=== PATIENT | female | born 1945 | race Caucasian/White ===

== ENCOUNTER 2017-08-01 14:50 | Outpatient (CLI) | payer MEDICARE ==
--- NOTE | 2017-08-01 16:22 | ULT ---
ULTRASOUND WITH DOPPLER DUPLEX VENOUS LOWER EXTREMITY LEFT: HISTORY: 72-year-old female with left lower extremity pain. TECHNIQUE: Color flow Doppler, spectral waveform analysis of pulsed Doppler, and cheema-scale imaging with camille carlos and augmentation, were used to evaluate the left common femoral, femoral, popliteal, posterior t ibial, and superficial femoral, veins; and the proximal portions of the profunda femoral and greater saphenous, veins. FINDINGS: There is normal compressibility, demonstration of blood flow by color Doppler and pulsed Doppler, and response to augmentation, in all interrogated veins. IMPRESSION: Negative. No deep vein thrombosis in the left lower extremity. cris POS: [facility]
== END 2017-08-01 14:51 | disposition home or self-care (01) ==
LOC: ULT 14:50
PROVIDERS: ATTEND Neurological Surgery
DX: M79.605 Pain in left leg (principal)

== ENCOUNTER 2017-08-18 09:42 | Outpatient (CLI) | payer MEDICARE ==
--- NOTE | 2017-08-18 12:26 | MRI ---
CERVICAL SPINE MRI WITHOUT CONTRAST: HISTORY: Cervical radiculopathy. COMPARISON: None. TECHNIQUE: A cervical spine MRI is performed without intravenous Gadolinium administration. Multisequential, mu ltiplanar imaging is performed. FINDINGS: There is appropriate T1 marrow signal intensity of the cervical vertebrae. The cervical vertebral graciela dy height is maintained. There is no fracture. No significant STIR hyperintensity to suggest edema or ligamentous injury. The visualized brain parenchyma, cervicomedullary junction, cervical cord, and upper thoracic cord whittaker ve normal size and signal intensity. C2-C3: Central disk osteophyte complex abuts the thecal sac. No significant central canal stenosis. The foramina are patent bilaterally. C3-C4: No significant disk osteophyte complex. No significant central canal stenosis. The foramina are patent. C4-C5: There is a minimal broad-based disk osteophyte complex without significant central canal sten osis. The foramina are patent. C5-C6: A broad-based disk osteophyte complex abuts the thecal sac. The ventral subarachnoid space i s effaced. Mild central canal stenosis. Mild right foraminal narrowing due to degenerative change o f the uncovertebral joint. The left foramen is patent. C6-C7: A broad-based disk osteophyte complex abuts the thecal sac. There is mild flattening of the cervical cord without T2 hyperintensity in the cord. Mild central canal stenosis. Mild bilateral fo raminal narrowing due to degenerative change of the uncovertebral joint. C7-T1: No significant disk osteophyte complex. No significant central canal stenosis or foraminal n arrowing. IMPRESSION: Degenerative change of the cervical spine, as above. POS: [facility]
--- NOTE | 2017-08-18 12:42 | RAD ---
CERVICAL SPINE THREE VIEWS: History: Cervical radiculopathy. Comparison: None. FINDINGS: Lateral neutral, lateral extension, and lateral flexion views of the cervical spine demonstrate dennis l predental space. Cervical body vertebral height is maintained. No fracture. Mild degenerative disc disease at C4-5, C5-6, and C6-7. In the neutral position, no abnormal alignment. Mild straightening i s noted. No abnormal translation of motion on extension or flexion. No prevertebral soft tissue abnor malities. IMPRESSION: Degenerative changes of the cervical spine as above. POS: [facility]
== END 2017-08-18 09:43 | disposition home or self-care (01) ==
LOC: MRI 09:42
PROVIDERS: ATTEND Neurological Surgery
DX: M47.22 Other spondylosis with radiculopathy, cervical region (principal)
CPT/HCPCS: 72050; 72141

== ENCOUNTER 2017-09-14 08:19 | Outpatient (CLI) | payer OTHER ==
--- NOTE | 2017-09-14 09:19 | RAD ---
LUMBAR SPINE: Technique: Neutral, flexion, and extension lateral radiographs lumbar spine 218. Comparison: None. History: Left hip pain radiating down the left leg, lumbar radiculopathy. FINDINGS: Neutral lateral imaging demonstrates no anterolisthesis or retrolisthesis. There is facet hypertrophy at L3-4, L4-5, and L5-S1. There is disc space narrowing with degenerative endplate change and anteri or osteophyte formation at the L1-2 and L2-3 levels with anterior vacuum disc changes. On the neutral imaging there is minimal anterolisthesis of L5 on S1 measuring approximately 5-6 mm. W ith flexion, anterolisthesis of L5 on S1 may be slightly increased to 6 mm. With extension, the anter olisthesis of L5 on S1 decreases to 4 mm. IMPRESSION: Multilevel degenerative change seen within the lumbar spine as above. There is mild anterolisthesis o f L5 on S1, measuring up to 6 mm with flexion. POS: [facility]
--- NOTE | 2017-09-14 10:27 | MRI ---
LUMBAR SPINE MRI WITHOUT CONTRAST: Date: 09-14-17 Comparison: 11-19-12 History: Left hip pain radiating down the left leg for five months, numbness of the left foot. Technique: Multiplanar, multisequence MR imaging of the cervical spine is provided without contrast. FINDINGS: The sagittal STIR imaging demonstrates no focal area of osseous marrow edema. There is no anterolisthesis or retrolisthesis seen within the lumbar spine. There is levoscoliosis of the lumbar spine, similar when compared to the prior examination. Assuming five lumbar type vertebral bodies, the conus medullaris terminates at the L1-2 level. Incidental note is made of small stents within the gallbladder lumen. T12-L1: Mild bilateral facet hypertrophy. Intervertebral disc height and signal intensity is within n ormal limits with no significant central canal or neural foraminal stenosis. L1-2: There is bilateral facet hypertrophy, right greater than left, progressed since the prior exam. There is disc space narrowing with anterior osteophyte formation and disc bulge, also progressed sin ce the prior exam. There is no significant central canal or left neural foraminal stenosis. There is mild right neural foraminal stenosis, new. L2-3: There is disc space narrowing and degenerative endplate change with anterior osteophyte formati on and disc bulge, slightly progressed since the prior exam. Bilateral facet hypertrophy noted, right greater than left, slightly progressed as well. There is no significant central canal or neural fora armida stenosis. L3-4: Disc space narrowing, disc desiccation, and disc bulge noted, stable. Mild stable bilateral fac et hypertrophy. No significant central canal or neural foraminal stenosis. There is a tiny post cuauhtemoc inal disc protrusion on the left abutting but not displacing the ventral aspect of the exiting L3 ner ve root. L4-5: There is disc desiccation and bilateral facet hypertrophy, stable. There is no significant cent ral canal or neural foraminal stenosis. L5-S1: Bilateral facet hypertrophy is present, right greater than left, progressed since the prior ex am. There is disc desiccation and mild disc bulge, new. There is a disc protrusion in the foraminal region on the right which abuts the exiting L1 nerve root on the right with a moderate degree of right neural foraminal stenosis, new since the prior exam. No significant left neural foraminal stenosis. The imaged retroperitoneal structures are grossly unremarkable. IMPRESSION: Multilevel degenerative change noted within the lumbar spine, progressed since the prior exam. The mo st significant finding is a foraminal disc protrusion the right at L5-S1 with associated right neural foraminal stenosis. POS: [facility]
== END 2017-09-14 08:20 | disposition home or self-care (01) ==
LOC: TBSIIMAG 08:19
PROVIDERS: ATTEND Neurological Surgery
DX: M47.26 Other spondylosis with radiculopathy, lumbar region (principal); M48.061 Spinal stenosis, lumbar region without neurogenic claudication; M51.27 Other intervertebral disc displacement, lumbosacral region; M43.17 Spondylolisthesis, lumbosacral region
CPT/HCPCS: 72100; 72148

== ENCOUNTER 2021-07-22 10:44 | Outpatient (CLI) | payer MEDICARE | END 2021-07-22 10:45 | disposition home or self-care (01) | LOC: BICMAMMO 10:44 | PROVIDERS: ATTEND Internal Medicine | DX: Z12.31 Encounter for screening mammogram for malignant neoplasm of breast (principal); Z85.3 Personal history of malignant neoplasm of breast; Z91.89 Other specified personal risk factors, not elsewhere classified; Z98.890 Other specified postprocedural states | CPT/HCPCS: 77063; 77067 ==

== ENCOUNTER 2022-07-26 11:36 | Outpatient (CLI) | payer MEDICARE | END 2022-07-26 11:37 | disposition home or self-care (01) | LOC: BICMAMMO 11:36 | PROVIDERS: ATTEND Family Medicine | DX: Z12.31 Encounter for screening mammogram for malignant neoplasm of breast (principal); Z98.890 Other specified postprocedural states; Z91.89 Other specified personal risk factors, not elsewhere classified; Z85.3 Personal history of malignant neoplasm of breast | CPT/HCPCS: 77063; 77067 ==

== ENCOUNTER 2023-07-27 10:18 | Outpatient (CLI) | payer MEDICARE | END 2023-07-27 10:19 | disposition home or self-care (01) | LOC: BICMAMMO 10:18 | PROVIDERS: ATTEND Family Medicine | DX: Z12.31 Encounter for screening mammogram for malignant neoplasm of breast (principal); Z85.3 Personal history of malignant neoplasm of breast; Z91.89 Other specified personal risk factors, not elsewhere classified; Z98.890 Other specified postprocedural states | CPT/HCPCS: 77063; 77067 ==

== ENCOUNTER 2023-07-31 13:27 | Outpatient (CLI) | payer MEDICARE | END 2023-07-31 13:28 | disposition home or self-care (01) | LOC: BICMAMMO 13:27 | PROVIDERS: ATTEND Family Medicine | DX: Z13.820 Encounter for screening for osteoporosis (principal); Z78.0 Asymptomatic menopausal state | CPT/HCPCS: 77080 ==

== ENCOUNTER 2023-09-27 12:32 | Outpatient (CLI) | payer MEDICARE | END 2023-09-27 12:33 | disposition home or self-care (01) | LOC: BICRAD 12:32 | PROVIDERS: ATTEND Family Medicine | DX: R05.3 Chronic cough (principal) | CPT/HCPCS: 71046 ==

== ENCOUNTER 2024-05-28 09:40 | Outpatient (CLI) | payer MEDICARE | END 2024-05-28 09:41 | disposition home or self-care (01) | LOC: BICMAMMO 09:40 | PROVIDERS: ATTEND Family Medicine | DX: N63.10 Unspecified lump in the right breast, unspecified quadrant (principal) | CPT/HCPCS: 76642; 77066; G0279 ==

== ENCOUNTER 2025-05-29 10:53 | Outpatient (CLI) | payer MEDICARE | END 2025-05-29 10:54 | disposition home or self-care (01) | LOC: BICMAMMO 10:53 | PROVIDERS: ATTEND Family Medicine | DX: Z12.31 Encounter for screening mammogram for malignant neoplasm of breast (principal); Z85.3 Personal history of malignant neoplasm of breast; Z85.820 Personal history of malignant melanoma of skin; Z91.89 Other specified personal risk factors, not elsewhere classified; Z98.890 Other specified postprocedural states | CPT/HCPCS: 77063; 77067 ==